=== PATIENT | female | born 1960 | race Caucasian/White ===

== ENCOUNTER 2025-01-03 15:23 | Emergency (ER) | payer SELFPAY ==
[2025-01-03] VITALS (41 sets, daily range): BP systolic 75–208; BP diastolic 50–96; PULSE 49–135; RESP 13–25; TEMP 36.4; O2SAT 95–100; BMI 30.1
--- NOTE | 2025-01-03 15:23 | ECG_ITS ---
APPROVED REPORT Exam: Resting ECG HR:137 bpm ECG Measurements Heart Rate 137 AXES QRSd 85 QRS 67 QT 317 T 71 QTc 397 Conclusion ATRIAL FIBRILLATION WITH RAPID VENTRICULAR RESPONSE MODERATE ST DEPRESSION [0.05+ mV ST DEPRESSION] ABNORMAL ECG UNCONFIRMED REPORT Electronically signed by : EFRAIN KRUEGER, 01/05/2025 23:05:59
--- NOTE | 2025-01-03 15:23 | CT_ITS ---
PROCEDURE INFORMATION: Exam: CT Head Without Contrast Exam date and time: 01/03/2025 4:03 PM Age: 64 years old Clinical indication: Syncope and collapse TECHNIQUE: Imaging protocol: Computed tomography of the head without contrast. Radiation optimization: All CT scans at this facility use at least one of these dose optimization techniques: automated exposure control; mA and/or kV adjustment per patient size (includes targeted exams where dose is matched to clinical indication); or iterative reconstruction. COMPARISON: No relevant prior studies available. FINDINGS: Brain: 10 mm hyperdense lesion right frontal white matter. Periventricular and subcortical small vessel ischemic changes appear chronic. Mild atrophy associated. No acute hemorrhage, mass effect, midline shift, or extra-axial fluid collection. Consider MRI with contrast for further evaluation. Cerebral ventricles: No ventriculomegaly. Paranasal sinuses: Visualized sinuses are unremarkable. No fluid levels. Mastoid air cells: Visualized mastoid air cells are well aerated. Bones: Unremarkable. No acute fracture. Soft tissues: Unremarkable. IMPRESSION: 10 mm hyperdense lesion right frontal white matter. Consider MRI with contrast for further evaluation.
--- NOTE | 2025-01-03 15:23 | XR_ITS ---
PROCEDURE INFORMATION: Exam: XR Chest Exam date and time: 01/03/2025 4:14 PM Age: 64 years old Clinical indication: Shortness of breath; Additional info: Cp SOA TECHNIQUE: Imaging protocol: Radiologic exam of the chest. Views: 1 view. COMPARISON: CT ANGIO CHEST 01/03/2025 4:09 PM FINDINGS: Lungs: Unremarkable. No consolidation. Pleural spaces: Unremarkable. No pleural effusion. No pneumothorax. Heart/Mediastinum: Unremarkable. No cardiomegaly. Bones/joints: Unremarkable. IMPRESSION: No acute findings.
--- NOTE | 2025-01-03 15:23 | CT_ITS ---
PROCEDURE INFORMATION: Exam: CT Cervical Spine Without Contrast Exam date and time: 01/03/2025 4:05 PM Age: 64 years old Clinical indication: Injury or trauma; Fall; Blunt trauma TECHNIQUE: Imaging protocol: Computed tomography of the cervical spine without contrast. Radiation optimization: All CT scans at this facility use at least one of these dose optimization techniques: automated exposure control; mA and/or kV adjustment per patient size (includes targeted exams where dose is matched to clinical indication); or iterative reconstruction. COMPARISON: CT HEAD/BRAIN WO CON 01/03/2025 4:03 PM FINDINGS: Bones/joints: No acute fracture. Normal alignment. C2-C3: No significant disc bulge or herniation. No severe spinal canal stenosis. No significant neural foraminal narrowing. C3-C4: No significant disc bulge or herniation. No severe spinal canal stenosis. No significant neural foraminal narrowing. C4-C5: No significant disc bulge or herniation. No severe spinal canal stenosis. No significant neural foraminal narrowing. C5-C6: No significant disc bulge or herniation. No severe spinal canal stenosis. No significant neural foraminal narrowing. C6-C7: No significant disc bulge or herniation. No severe spinal canal stenosis. No significant neural foraminal narrowing. C7-T1: No significant disc bulge or herniation. No severe spinal canal stenosis. No significant neural foraminal narrowing. Lungs: Lung apices are normal. Soft tissues: Unremarkable. IMPRESSION: No acute cervical spine fracture.
[2025-01-03] MEDS: 0.9 % SODIUM CHLORIDE 1000ML 1,000 ML 999 ML IV (15:25)
--- NOTE | 2025-01-03 15:26 | PC.NURSE ---
called RT for continuous neb per PA Heide
--- NOTE | 2025-01-03 15:28 | CT_ITS ---
PROCEDURE INFORMATION: Exam: CTA Chest With Contrast Exam date and time: 01/03/2025 4:09 PM Age: 64 years old Clinical indication: Shortness of breath; Additional info: SOA TECHNIQUE: Imaging protocol: Computed tomographic angiography of the chest with contrast. Exam focused on the arteries. 3D rendering (Not supervised by radiologist): MIP and/or 3D reconstructed images were created by the technologist. Radiation optimization: All CT scans at this facility use at least one of these dose optimization techniques: automated exposure control; mA and/or kV adjustment per patient size (includes targeted exams where dose is matched to clinical indication); or iterative reconstruction. Contrast material: ISOVUE 370; Contrast volume: 80 ml; Contrast route: INTRAVENOUS (IV); COMPARISON: CT CERVICAL SPINE WO CON 01/03/2025 4:05 PM FINDINGS: Pulmonary arteries: Normal. No pulmonary emboli. Aorta: Unremarkable. No aortic aneurysm. No aortic dissection. Lungs: Unremarkable. No consolidation. No masses. Pleural spaces: Unremarkable. No pneumothorax. No pleural effusion. Heart: Unremarkable. No cardiomegaly. No pericardial effusion. Lymph nodes: Unremarkable. No enlarged lymph nodes. Bones/joints: Unremarkable. No acute fracture. Soft tissues: Unremarkable. IMPRESSION: No acute findings.
--- NOTE | 2025-01-03 15:39 | ED_ITS ---
Discharge Plan Disposition Chief Complaint: Shortness of Breath/Dyspnea Referrals Follow up/Referrals: Provider,Referral, MD [Primary Care Provider, Medical] - See instructions Stand Alone Forms Stand Alone Forms: Transfer Record - ED Print Language Print Language: Lao Discharge ED Provider: Jessica Guzman HPI <Mayi Wiley APRN - Last Filed: 01/03/25 18:28> General Chief Complaint: Shortness of Breath/Dyspnea Stated Complaint: AMS Time Seen by Provider: 01/03/25 15:26 History of Present Illness HPI narrative: patient is a 64-year-old female PMHx COPD (does not wear home O2), current tobacco use who presents to the ED via EMS for complaints of shortness of air and intermittent chest pain that has progressed over the past week. Patient states that she had a syncopal episode last night, falling in her kitchen and hitting her head on something in the kitchen, unsure of how long she was out. Related Data Allergies Allergy/AdvReac Type Severity Reaction Status Date / Time No Known Allergies Allergy Verified 01/03/25 15:45 <Jessica Guzman DO - Last Filed: 01/03/25 19:39> History of Present Illness HPI narrative: patient is a 64-year-old female PMHx COPD (does not wear home O2), current tobacco use who presents to the ED via EMS for complaints of shortness of air and intermittent chest pain that has progressed over the past week. Patient states that she had a syncopal episode last night, falling in her kitchen and hitting her head on something in the kitchen, unsure of how long she was out. Patient denies any abdominal pain, nausea vomiting or diarrhea. Patient denies any headache or vision changes. Patient states that she was able to get up on her own after her fall last night. Patient states that she does have COPD but does not have any other cardiac history. States that she has never been told she has A-fib. States that she is not currently on any blood thinners. Patient denies any urinary symptoms denies any recent upper respiratory symptoms. PFSH <Mayi Wiley APRN - Last Filed: 01/03/25 18:28> [facility] Disclaimer: The information contained in this section may have been updated after the patient was seen, as this information can be updated by other users. Social History (Updated 01/03/25 @ 18:28 by Mayi Wiley APRN) Smoking Status: Current every day smoker alcohol intake: never current occupational status: unemployed Travel in the last 8 weeks?: None <Mayi Wiley APRN - Last Filed: 01/03/25 18:28> ROS Obtained: Yes Systems reviewed as appropriate & no additional complaints except as documented <Jessica Guzman DO - Last Filed: 01/03/25 19:39> ROS Obtained: Yes All systems reviewed & no additional complaints except as documented and Yes Systems reviewed as appropriate & no additional complaints except as documented Physical Exam <Mayi Wiley APRN - Last Filed: 01/03/25 18:28> General General appearance: alert Head Head exam: atraumatic Eye Eye exam: Present PERRL and EOMI; Absent nystagmus Neck Neck exam: Present full ROM Respiratory Respiratory exam: Present respiratory distress and other (Decreased breath sounds) Cardiovascular Cardiovascular exam: Present tachycardia and irregular rhythm Abdominal Exam Abdominal exam: Present soft Back Exam Back exam: Absent tenderness or rashes Neurological Exam Neurological exam: Present alert Skin Skin exam: Present dry <Jessica Guzman DO - Last Filed: 01/03/25 19:39> General General appearance: alert and in no apparent distress Head Head exam: normocephalic Neck Neck exam: Present normal inspection Respiratory Respiratory exam: Present normal lung sounds bilaterally, respiratory distress and other (Decreased breath sounds, some wheezing in upper lung [place]) Abdominal Exam Abdominal exam: Absent distention or tenderness HEART Score <Mayi Wiley APRN - Last Filed: 01/03/25 18:28> HEART Score HEART Score assessment performed?: No Critical Care <Mayi Wiley APRN - Last Filed: 01/03/25 18:28> Critical Care Time Critical Care Time: No <Jessica Guzman DO - Last Filed: 01/03/25 19:39> Critical Care Time Critical Care Time: Yes Attestation: On 01/03/25, the high probability of a clinically significant, sudden or life threatening deterioration of the following system(s) required my full and direct attention, intervention and personal management. The time I documented below is in addition to time spent performing reported procedures but includes the following listed in this critical care notation. Total Time Total Critical Care Time: 65 Medical Decision Making <Mayi Wiley APRN - Last Filed: 01/03/25 18:28> Bret Inquiry Pt receiving controlled substance: No Vital Signs Vital Signs: 01/03/25 15:56 01/03/25 16:41 01/03/25 16:45 Temperature 97.5 F L Temperature Source Oral Pulse Rate 70 Pulse Rate [Right Radial] 135 H Respiratory Rate 25 H 19 Blood Pressure 84/52 L 75/53 L Blood Pressure [Right Arm] 78/55 L Blood Pressure Mean 56 56 Blood Pressure Mean [Right Arm] 62 Blood Pressure Source [Right Arm] Automatic Cuff Blood Pressure Position [Right Arm] Supine 02 Sat by Pulse Oximetry 95 98 Oxygen Delivery Method Nasal Cannula Nasal Cannula Oxygen Flow Rate (LPM) 6 6 01/03/25 16:50 01/03/25 16:59 01/03/25 17:00 Temperature Temperature Source Pulse Rate 91 H Pulse Rate [Right Radial] Respiratory Rate 22 Blood Pressure 84/61 L 117/77 109/70 L Blood Pressure [Right Arm] Blood Pressure Mean 67 88 78 Blood Pressure Mean [Right Arm] Blood Pressure Source [Right Arm] Blood Pressure Position [Right Arm] 02 Sat by Pulse Oximetry 97 Oxygen Delivery Method Nasal Cannula Oxygen Flow Rate (LPM) 6 01/03/25 17:05 01/03/25 17:10 01/03/25 17:15 Temperature Temperature Source Pulse Rate 96 H Pulse Rate [Right Radial] Respiratory Rate 21 Blood Pressure 120/82 109/69 L 120/78 Blood Pressure [Right Arm] Blood Pressure Mean 94 82 92 Blood Pressure Mean [Right Arm] Blood Pressure Source [Right Arm] Blood Pressure Position [Right Arm] 02 Sat by Pulse Oximetry 96 Oxygen Delivery Method Nasal Cannula Oxygen Flow Rate (LPM) 6 01/03/25 17:20 01/03/25 17:26 01/03/25 17:30 Temperature Temperature Source Pulse Rate 89 Pulse Rate [Right Radial] Respiratory Rate 22 Blood Pressure 118/72 97/62 L 115/84 Blood Pressure [Right Arm] Blood Pressure Mean 87 79 92 Blood Pressure Mean [Right Arm] Blood Pressure Source [Right Arm] Blood Pressure Position [Right Arm] 02 Sat by Pulse Oximetry 97 Oxygen Delivery Method Nasal Cannula Oxygen Flow Rate (LPM) 6 01/03/25 17:35 01/03/25 17:40 01/03/25 17:46 Temperature Temperature Source Pulse Rate 78 Pulse Rate [Right Radial] Respiratory Rate 18 Blood Pressure 129/83 116/73 151/93 H Blood Pressure [Right Arm] Blood Pressure Mean 93 87 102 Blood Pressure Mean [Right Arm] Blood Pressure Source [Right Arm] Blood Pressure Position [Right Arm] 02 Sat by Pulse Oximetry 100 Oxygen Delivery Method Nasal Cannula Oxygen Flow Rate (LPM) 01/03/25 17:50 01/03/25 18:05 01/03/25 18:10 Temperature Temperature Source Pulse Rate 79 81 78 Pulse Rate [Right Radial] Respiratory Rate 17 16 19 Blood Pressure 132/85 114/75 141/83 H Blood Pressure [Right Arm] Blood Pressure Mean Blood Pressure Mean [Right Arm] Blood Pressure Source [Right Arm] Blood Pressure Position [Right Arm] 02 Sat by Pulse Oximetry 100 100 100 Oxygen Delivery Method Nasal Cannula Nasal Cannula Nasal Cannula Oxygen Flow Rate (LPM) 6 6 2 01/03/25 18:31 01/03/25 18:39 01/03/25 18:45 Temperature Temperature Source Pulse Rate 84 81 80 Pulse Rate [Right Radial] Respiratory Rate 20 19 21 Blood Pressure 89/54 L 101/59 L 88/56 L Blood Pressure [Right Arm] Blood Pressure Mean Blood Pressure Mean [Right Arm] Blood Pressure Source [Right Arm] Blood Pressure Position [Right Arm] 02 Sat by Pulse Oximetry 95 96 96 Oxygen Delivery Method Nasal Cannula Nasal Cannula Nasal Cannula Oxygen Flow Rate (LPM) 2 2 2 01/03/25 18:59 Temperature Temperature Source Pulse Rate Pulse Rate [Right Radial] Respiratory Rate Blood Pressure Blood Pressure [Right Arm] Blood Pressure Mean Blood Pressure Mean [Right Arm] Blood Pressure Source [Right Arm] Blood Pressure Position [Right Arm] 02 Sat by Pulse Oximetry 95 Oxygen Delivery Method Nasal Cannula Oxygen Flow Rate (LPM) 2 Lab Data Labs: Lab Results 01/03/25 15:23: VBG pH 7.41, VBG pCO2 49.4, VBG pO2 33.2, VBG HCO3 30.5 H, VBG Total CO2 32.0 H, VBG O2 Saturation 64.9, VBG Base Excess 5.8 H, VBG Lactic Acid 2.5 H 01/03/25 15:28: WBC 15.3 H, RBC 4.38, Hgb 14.0, Hct 40.7, MCV 92.9, MCH 32.0 H, MCHC 34.4, RDW 14.0, Plt Count 256, MPV 10.9 H, Neut % (Auto) 67.7, Lymph % (Auto) 24.5, [place] % (Auto) 6.9, Eos % (Auto) 0.3, Baso % (Auto) 0.2, Neut # (Auto) 10.4 H, Lymph # (Auto) 3.8, [place] # (Auto) 1.1 H, Eos # (Auto) 0.0, Baso # (Auto) 0.0, PT 10.7, INR 0.96, APTT 26.5, Sodium 123 L, Potassium 3.3 L, C hloride 84 L, Carbon Dioxide 31 H, Anion Gap 11.3, BUN 45 H, Creatinine 3.40 H, Estimated Creat Clear 21, Estimated GFR 14 L*, Est GFR ( Amer) 17 L*, Glucose 100, Calcium 8.8, Total Bilirubin 1.0, AST 42 H, ALT 20, Alkaline Phosphatase 103, Troponin I 0.02, NT-Pro-B Natriuret Pep 756 H, Total Protein 6.6, Albumin 3.9, Globulin 2.7, Albumin/Globulin Ratio 1.4, Lipase 28, Plasma/Serum Alcohol < 10, HCV Ab CAROLE w/Rflx PCR Qn Negative, HIV Ag/Ab Combo Qual Negative 01/03/25 17:33: Urine Color Yellow, Urine Appearance Sl cloudy, Urine pH 5.5, Ur Specific [place] <= 1.005, Urine Protein Trace, Urine Glucose (UA) Negative, Urine Ketones Negative, Urine Blood Trace-i, Urine Nitrate Negative, Urine Bilirubin Negative, Urine Urobilinogen 0.2, Ur Leukocyte Esterase Negative, Urine RBC Occasional, Urine WBC Occasional, Ur Squamous Epith Cells 5-10, Urine Bacteria 1+ 01/03/25 17:35: Urine Opiates Screen Negative, Urine Methadone Screen Negative, Ur Barbituates Screen Negative, Ur Phencyclidine Scrn Negative, Ur Amphetamines Screen Negative, U Benzodiazepines Scrn Negative, Urine Cocaine Screen Negative, U Marijuana (THC) Screen Negative 01/03/25 18:40: Troponin I 0.02 01/03/25 15:28 01/03/25 15:28 Response Orders (Tests/Meds): ED MEDICATIONS Generic Name Dose Route Start Last Admin Trade Name Freq PRN Reason Stop Dose Admin Azithromycin 500 mg/ Sodium 250 mls @ 250 mls/hr 01/03/25 15:45 01/03/25 18:55 Chloride IV 01/13/25 15:44 Infused Q24H JORGE Infusion Norepinephrine/Dextrose 8 mg in 250 mls @ 3.75 mls/hr 01/03/25 16:21 01/03/25 19:06 Levophed 8mg/250ml-D5w Premix IV 02/02/25 16:20 2 mcg/min .Q24H JORGE 3.75 mls/hr Protocol Titration 2 MCG/MIN Potassium Chloride/Water 100 mls @ 50 mls/hr 01/03/25 18:11 01/03/25 18:50 Potassium Chloride 20meq/100ml Ivpb IV 01/04/25 00:10 50 mls/hr Q2H JORGE Administration Sodium Chloride 10 ml 01/03/25 16:03 Sodium Chloride 0.9% 10ml Syr (Rad Only) IV 02/02/25 16:02 NEEDED PRN Maintain IV Site Discontinued Medications Generic Name Dose Route Start Last Admin Trade Name Freq PRN Reason Stop Dose Admin Albuterol/Ipratropium 20 ml 01/03/25 15:23 01/03/25 18:55 Ipratropium/Albuterol 3 Ml Neb IH 01/03/25 15:24 Not Given ONCE ONE Sodium Chloride 1,000 mls @ 999 mls/hr 01/03/25 15:23 01/03/25 18:17 Sod Chlor 0.9% 1000ml Bag IV 01/03/25 16:23 Infused .Q1H1M ONE Infusion Magnesium Sulfate 2 gm in 50 mls @ 50 mls/hr 01/03/25 15:41 01/03/25 17:19 Magnesium Sulfate 2gm/50ml Premix IV 01/03/25 16:40 Infused ONCE ONE Infusion Piperacillin Sod/Tazobactam 50 mls @ 100 mls/hr 01/03/25 16:23 01/03/25 18:56 Sod 3.375 gm/ Sodium Chloride IV 01/03/25 16:52 Infused ONCE ONE Infusion Vancomycin HCl 2,000 mg/ 250 mls @ 125 mls/hr 01/03/25 16:30 Sodium Chloride IV 01/03/25 18:29 ONCE ONE Lactated Ringer's 1,000 mls @ 999 mls/hr 01/03/25 17:22 01/03/25 18:10 Lactated Ringer's 1000 Ml Bag IV 01/03/25 18:22 999 mls/hr .Q1H1M ONE Administration Iopamidol 80 ml 01/03/25 16:03 Iopamidol-370 (76%);100ml Bottle IV 01/03/25 16:04 ONCE ONE Methylprednisolone Sodium Succinate 125 mg 01/03/25 15:41 01/03/25 15:53 Methylprednisolone Sod Succ 125mg Vial IV 01/03/25 15:42 125 mg ONCE ONE Administration Miscellaneous 1 each 01/03/25 16:23 Vancomycin Consult Request NOTAPPLIC 01/03/25 16:24 CONSULT PHARMACY ONE Sodium Chloride 50 ml 01/03/25 16:03 0.9 % Sodium Chloride 50 Ml Vial IV 01/03/25 16:04 ONCE ONE ORDERS Category Date Time Status CT abdomen pelvis w con Stat Cat Scan 01/03/25 15:[address] angio chest - dissection Stat Cat Scan 01/03/25 15:[address] cervical spine wo con Stat Cat Scan 01/03/25 15:[address] head/brain wo con Stat Cat Scan 01/03/25 15:23 Completed CXR --portable [XR chest portable] Stat Exams 01/03/25 15:23 Completed POCUS Point of Care (ER Only) Stat Exams 01/03/25 15:29 Completed BNP [NT Pro Brain Natriuretic Pep.] Stat Lab 01/03/25 15:28 Completed CBC w/Auto Diff [Complete Blood Count Auto Diff] Stat Lab 01/03/25 15:28 Completed CMP [Comprehensive Metabolic Panel] Stat Lab 01/03/25 15:28 Completed Ethyl Alcohol Stat Lab 01/03/25 15:28 Completed HIV Combo Stat Lab 01/03/25 15:28 Completed Hepatitis C Ab Qual. W/ RFX Stat Lab 01/03/25 15:28 Completed Lipase Stat Lab 01/03/25 15:28 Completed PT/PTT Stat Lab 01/03/25 15:28 Completed Trop I [Troponin I] Stat Lab 01/03/25 15:28 Completed Troponin I Q3H Lab 01/03/25 18:40 Completed Troponin I Q3H Lab 01/03/25 21:30 Ordered UA [Urinalysis and Microscopic] Stat Lab 01/03/25 17:33 Completed UDS [Drug Screen,Urine] Stat Lab 01/03/25 17:35 Completed Urine Culture Stat Micro 01/03/25 17:35 Received VBG [Venous Blood Gas] Stat RT 01/03/25 15:23 Completed EKG Request [ECG Request] Stat Y 01/03/25 17:23 Ordered MDM Narrative Medical Decision Narrative: In summary, patient is a 64-year-old female PMHx COPD (does not wear home O2), current tobacco use who presents to the ED via EMS for complaints of shortness of air and intermittent chest pain that has progressed over the past week. Patient states that she had a syncopal episode last night, falling in her kitchen and hitting her head on something in the kitchen, unsure of how long she was out. Denies any additional complaints. EMS reports that family called the stating that she was short of breath, they advised that upon arrival patient's oxygen saturation was fluctuating from the 60s to the 80s on room air. Upon arrival to the ED, patient is in respiratory distress, she is hypotensive (systolic 60s) and tachycardic (130s), she is speaking a few words at a time. She arrived on a nonrebreather and was switched to 6 L nasal cannula (94%), attending at bedside, POCUS performed. CT head, CT C-spine, CT chest, chest x- ray, labs and EKG ordered. Immediately started 2 L of warm IV fluids with pressure bag. Attending ordered magnesium, ipratropium, DuoNeb, azithromycin. CBC remarkable for leukocytosis 15.3, stable H&H. CMP remarkable for sodium 123, potassium 3.3, BUN 45, creatinine 3.40, GFR 14, BNP 756. VBG remarkable for HCO3 30.5, CO2 32, lactic acid 2.5. Vancomycin and Zosyn started. Care transferred to attending, Dr. Guzman. <Jessica Guzman, DO - Last Filed: 01/03/25 19:39> Medical Records Medical records reviewed: Yes I reviewed the patient's medical records. Vital Signs Vital Signs: 01/03/25 15:56 01/03/25 16:41 01/03/25 16:45 Temperature 97.5 F L Temperature Source Oral Pulse Rate 70 Pulse Rate [Right Radial] 135 H Respiratory Rate 25 H 19 Blood Pressure 84/52 L 75/53 L Blood Pressure [Right Arm] 78/55 L Blood Pressure Mean 56 56 Blood Pressure Mean [Right Arm] 62 Blood Pressure Source [Right Arm] Automatic Cuff Blood Pressure Position [Right Arm] Supine 02 Sat by Pulse Oximetry 95 98 Oxygen Delivery Method Nasal Cannula Nasal Cannula Oxygen Flow Rate (LPM) 6 6 01/03/25 16:50 01/03/25 16:59 01/03/25 17:00 Temperature Temperature Source Pulse Rate 91 H Pulse Rate [Right Radial] Respiratory Rate 22 Blood Pressure 84/61 L 117/77 109/70 L Blood Pressure [Right Arm] Blood Pressure Mean 67 88 78 Blood Pressure Mean [Right Arm] Blood Pressure Source [Right Arm] Blood Pressure Position [Right Arm] 02 Sat by Pulse Oximetry 97 Oxygen Delivery Method Nasal Cannula Oxygen Flow Rate (LPM) 6 01/03/25 17:05 01/03/25 17:10 01/03/25 17:15 Temperature Temperature Source Pulse Rate 96 H Pulse Rate [Right Radial] Respiratory Rate 21 Blood Pressure 120/82 109/69 L 120/78 Blood Pressure [Right Arm] Blood Pressure Mean 94 82 92 Blood Pressure Mean [Right Arm] Blood Pressure Source [Right Arm] Blood Pressure Position [Right Arm] 02 Sat by Pulse Oximetry 96 Oxygen Delivery Method Nasal Cannula Oxygen Flow Rate (LPM) 6 01/03/25 17:20 01/03/25 17:26 01/03/25 17:30 Temperature Temperature Source Pulse Rate 89 Pulse Rate [Right Radial] Respiratory Rate 22 Blood Pressure 118/72 97/62 L 115/84 Blood Pressure [Right Arm] Blood Pressure Mean 87 79 92 Blood Pressure Mean [Right Arm] Blood Pressure Source [Right Arm] Blood Pressure Position [Right Arm] 02 Sat by Pulse Oximetry 97 Oxygen Delivery Method Nasal Cannula Oxygen Flow Rate (LPM) 6 01/03/25 17:35 01/03/25 17:40 01/03/25 17:46 Temperature Temperature Source Pulse Rate 78 Pulse Rate [Right Radial] Respiratory Rate 18 Blood Pressure 129/83 116/73 151/93 H Blood Pressure [Right Arm] Blood Pressure Mean 93 87 102 Blood Pressure Mean [Right Arm] Blood Pressure Source [Right Arm] Blood Pressure Position [Right Arm] 02 Sat by Pulse Oximetry 100 Oxygen Delivery Method Nasal Cannula Oxygen Flow Rate (LPM) 01/03/25 17:50 01/03/25 18:05 01/03/25 18:10 Temperature Temperature Source Pulse Rate 79 81 78 Pulse Rate [Right Radial] Respiratory Rate 17 16 19 Blood Pressure 132/85 114/75 141/83 H Blood Pressure [Right Arm] Blood Pressure Mean Blood Pressure Mean [Right Arm] Blood Pressure Source [Right Arm] Blood Pressure Position [Right Arm] 02 Sat by Pulse Oximetry 100 100 100 Oxygen Delivery Method Nasal Cannula Nasal Cannula Nasal Cannula Oxygen Flow Rate (LPM) 6 6 2 01/03/25 18:31 01/03/25 18:39 01/03/25 18:45 Temperature Temperature Source Pulse Rate 84 81 80 Pulse Rate [Right Radial] Respiratory Rate 20 19 21 Blood Pressure 89/54 L 101/59 L 88/56 L Blood Pressure [Right Arm] Blood Pressure Mean Blood Pressure Mean [Right Arm] Blood Pressure Source [Right Arm] Blood Pressure Position [Right Arm] 02 Sat by Pulse Oximetry 95 96 96 Oxygen Delivery Method Nasal Cannula Nasal Cannula Nasal Cannula Oxygen Flow Rate (LPM) 2 2 2 01/03/25 18:59 Temperature Temperature Source Pulse Rate Pulse Rate [Right Radial] Respiratory Rate Blood Pressure Blood Pressure [Right Arm] Blood Pressure Mean Blood Pressure Mean [Right Arm] Blood Pressure Source [Right Arm] Blood Pressure Position [Right Arm] 02 Sat by Pulse Oximetry 95 Oxygen Delivery Method Nasal Cannula Oxygen Flow Rate (LPM) 2 Lab Data Lab results reviewed: Yes I reviewed the patient's lab results. Labs: Lab Results 01/03/25 15:23: VBG pH 7.41, VBG pCO2 49.4, VBG pO2 33.2, VBG HCO3 30.5 H, VBG Total CO2 32.0 H, VBG O2 Saturation 64.9, VBG Base Excess 5.8 H, VBG Lactic Acid 2.5 H 01/03/25 15:28: WBC 15.3 H, RBC 4.38, Hgb 14.0, Hct 40.7, MCV 92.9, MCH 32.0 H, MCHC 34.4, RDW 14.0, Plt Count 256, MPV 10.9 H, Neut % (Auto) 67.7, Lymph % (Auto) 24.5, [place] % (Auto) 6.9, Eos % (Auto) 0.3, Baso % (Auto) 0.2, Neut # (Auto) 10.4 H, Lymph # (Auto) 3.8, [place] # (Auto) 1.1 H, Eos # (Auto) 0.0, Baso # (Auto) 0.0, PT 10.7, INR 0.96, APTT 26.5, Sodium 123 L, Potassium 3.3 L, C hloride 84 L, Carbon Dioxide 31 H, Anion Gap 11.3, BUN 45 H, Creatinine 3.40 H, Estimated Creat Clear 21, Estimated GFR 14 L*, Est GFR ( Amer) 17 L*, Glucose 100, Calcium 8.8, Total Bilirubin 1.0, AST 42 H, ALT 20, Alkaline Phosphatase 103, Troponin I 0.02, NT-Pro-B Natriuret Pep 756 H, Total Protein 6.6, Albumin 3.9, Globulin 2.7, Albumin/Globulin Ratio 1.4, Lipase 28, Plasma/Serum Alcohol < 10, HCV Ab CAROLE w/Rflx PCR Qn Negative, HIV Ag/Ab Combo Qual Negative 01/03/25 17:33: Urine Color Yellow, Urine Appearance Sl cloudy, Urine pH 5.5, Ur Specific [place] <= 1.005, Urine Protein Trace, Urine Glucose (UA) Negative, Urine Ketones Negative, Urine Blood Trace-i, Urine Nitrate Negative, Urine Bilirubin Negative, Urine Urobilinogen 0.2, Ur Leukocyte Esterase Negative, Urine RBC Occasional, Urine WBC Occasional, Ur Squamous Epith Cells 5-10, Urine Bacteria 1+ 01/03/25 17:35: Urine Opiates Screen Negative, Urine Methadone Screen Negative, Ur Barbituates Screen Negative, Ur Phencyclidine Scrn Negative, Ur Amphetamines Screen Negative, U Benzodiazepines Scrn Negative, Urine Cocaine Screen Negative, U Marijuana (THC) Screen Negative 01/03/25 18:40: Troponin I 0.02 Response Orders (Tests/Meds): ED MEDICATIONS Generic Name Dose Route Start Last Admin Trade Name Freq PRN Reason Stop Dose Admin Azithromycin 500 mg/ Sodium 250 mls @ 250 mls/hr 01/03/25 15:45 01/03/25 18:55 Chloride IV 01/13/25 15:44 Infused Q24H JORGE Infusion Norepinephrine/Dextrose 8 mg in 250 mls @ 3.75 mls/hr 01/03/25 16:21 01/03/25 19:06 Levophed 8mg/250ml-D5w Premix IV 02/02/25 16:20 2 mcg/min .Q24H JORGE 3.75 mls/hr Protocol Titration 2 MCG/MIN Potassium Chloride/Water 100 mls @ 50 mls/hr 01/03/25 18:11 01/03/25 18:50 Potassium Chloride 20meq/100ml Ivpb IV 01/04/25 00:10 50 mls/hr Q2H JORGE Administration Sodium Chloride 10 ml 01/03/25 16:03 Sodium Chloride 0.9% 10ml Syr (Rad Only) IV 02/02/25 16:02 NEEDED PRN Maintain IV Site Discontinued Medications Generic Name Dose Route Start Last Admin Trade Name Freq PRN Reason Stop Dose Admin Albuterol/Ipratropium 20 ml 01/03/25 15:23 01/03/25 18:55 Ipratropium/Albuterol 3 Ml Neb IH 01/03/25 15:24 Not Given ONCE ONE Sodium Chloride 1,000 mls @ 999 mls/hr 01/03/25 15:23 01/03/25 18:17 Sod Chlor 0.9% 1000ml Bag IV 01/03/25 16:23 Infused .Q1H1M ONE Infusion Magnesium Sulfate 2 gm in 50 mls @ 50 mls/hr 01/03/25 15:41 01/03/25 17:19 Magnesium Sulfate 2gm/50ml Premix IV 01/03/25 16:40 Infused ONCE ONE Infusion Piperacillin Sod/Tazobactam 50 mls @ 100 mls/hr 01/03/25 16:23 01/03/25 18:56 Sod 3.375 gm/ Sodium Chloride IV 01/03/25 16:52 Infused ONCE ONE Infusion Vancomycin HCl 2,000 mg/ 250 mls @ 125 mls/hr 01/03/25 16:30 Sodium Chloride IV 01/03/25 18:29 ONCE ONE Lactated Ringer's 1,000 mls @ 999 mls/hr 01/03/25 17:22 01/03/25 18:10 Lactated Ringer's 1000 Ml Bag IV 01/03/25 18:22 999 mls/hr .Q1H1M ONE Administration Iopamidol 80 ml 01/03/25 16:03 Iopamidol-370 (76%);100ml Bottle IV 01/03/25 16:04 ONCE ONE Methylprednisolone Sodium Succinate 125 mg 01/03/25 15:41 01/03/25 15:53 Methylprednisolone Sod Succ 125mg Vial IV 01/03/25 15:42 125 mg ONCE ONE Administration Miscellaneous 1 each 01/03/25 16:23 Vancomycin Consult Request NOTAPPLIC 01/03/25 16:24 CONSULT PHARMACY ONE Sodium Chloride 50 ml 01/03/25 16:03 0.9 % Sodium Chloride 50 Ml Vial IV 01/03/25 16:04 ONCE ONE ORDERS Category Date Time Status CT abdomen pelvis w con Stat Cat Scan 01/03/25 15:[address] angio chest - dissection Stat Cat Scan 01/03/25 15:[address] cervical spine wo con Stat Cat Scan 01/03/25 15:[address] head/brain wo con Stat Cat Scan 01/03/25 15:23 Completed CXR --portable [XR chest portable] Stat Exams 01/03/25 15:23 Completed POCUS Point of Care (ER Only) Stat Exams 01/03/25 15:29 Completed BNP [NT Pro Brain Natriuretic Pep.] Stat Lab 01/03/25 15:28 Completed CBC w/Auto Diff [Complete Blood Count Auto Diff] Stat Lab 01/03/25 15:28 Completed CMP [Comprehensive Metabolic Panel] Stat Lab 01/03/25 15:28 Completed Ethyl Alcohol Stat Lab 01/03/25 15:28 Completed HIV Combo Stat Lab 01/03/25 15:28 Completed Hepatitis C Ab Qual. W/ RFX Stat Lab 01/03/25 15:28 Completed Lipase Stat Lab 01/03/25 15:28 Completed PT/PTT Stat Lab 01/03/25 15:28 Completed Trop I [Troponin I] Stat Lab 01/03/25 15:28 Completed Troponin I Q3H Lab 01/03/25 18:40 Completed Troponin I Q3H Lab 01/03/25 21:30 Ordered UA [Urinalysis and Microscopic] Stat Lab 01/03/25 17:33 Completed UDS [Drug Screen,Urine] Stat Lab 01/03/25 17:35 Completed Urine Culture Stat Micro 01/03/25 17:35 Received VBG [Venous Blood Gas] Stat RT 01/03/25 15:23 Completed EKG Request [ECG Request] Stat Y 01/03/25 17:23 Ordered MDM Narrative Medical Decision Narrative: In summary, patient is a 64-year-old female PMHx COPD (does not wear home O2), current tobacco use who presents to the ED via EMS for complaints of shortness of air and intermittent chest pain that has progressed over the past week. Patient states that she had a syncopal episode last night, falling in her kitchen and hitting her head on something in the kitchen, unsure of how long she was out. Denies any additional complaints. EMS reports that family called the stating that she was short of breath, they advised that upon arrival patient's oxygen saturation was fluctuating from the 60s to the 80s on room air. Patient was placed on a nonrebreather and transferred here. Patient was hypotensive and route. Upon arrival to the ED, patient is in respiratory distress, she is hypotensive (systolic 60s) and tachycardic (130s), she is speaking a few words at a time. She arrived on a nonrebreather and was switched to 6 L nasal cannula (94%), attending at bedside, POCUS performed which showed no pericardial effusion, no right ventricular enlargement. No B-lines bilaterally. EF appeared normal, just hyperdynamic. CT head, CT C-spine, CT chest, CT abdomen and chest x-ray, labs and EKG ordered. Immediately started 2 L of warm IV fluids with pressure bag. Attending ordered magnesium, ipratropium, DuoNeb, azithromycin. CBC remarkable for leukocytosis 15.3, stable H&H. CMP remarkable for sodium 123, potassium 3.3, BUN 45, creatinine 3.40, GFR 14, BNP 756. VBG remarkable for HCO3 30.5, CO2 32, lactic acid 2.5. Blood cultures were obtained and patient was started on Vancomycin and Zosyn given concern for septic shock. Initial troponin 0.02. Initial EKG showed A-fib RVR rates in the 130s no acute ST or T wave changes concerning for ischemia. Care transferred to attending, Dr. Guzman. Patient's blood pressure after 1-1/2 L continue to have a systolic in the 60s therefore patient was empirically started on norepinephrine. Patient's heart rate did significantly improve and patient's heart rate was now 104. Although I considered cardioversion, patient's heart rate improved significantly with IV fluids therefore I felt that patient's A-fib with RVR was likely a secondary reaction and HR was improving significantly with IVF. UA showed no evidence of infection. Second troponin 0.02. While on low-dose norepinephrine, patient's blood pressures improved to 140 systolic therefore patient was trialed off of norepinephrine however patient systolic was then 80 therefore patient was placed back on norepinephrine. Patient completed her third liter of IV fluids. Repeat EKG was obtained and patient was back in normal sinus rhythm with a rate of [address] or T wave changes concerning for ischemia. At this time I felt the patient warranted admission for undifferentiated septic shock, significant dehydration with an acute IDA. Given that patient gets her care at the [facility], we discussed care with them. Patient was ultimately accepted to their service to the ICU for further management and workup.
--- NOTE | 2025-01-03 15:42 | CT_ITS ---
PROCEDURE INFORMATION: Exam: CT Abdomen And Pelvis With Contrast Exam date and time: 01/03/2025 4:09 PM Age: 64 years old Clinical indication: Other: Septic TECHNIQUE: Imaging protocol: Computed tomography of the abdomen and pelvis with contrast. 3D rendering (Not supervised by radiologist): MIP and/or 3D reconstructed images were created by the technologist. Radiation optimization: All CT scans at this facility use at least one of these dose optimization techniques: automated exposure control; mA and/or kV adjustment per patient size (includes targeted exams where dose is matched to clinical indication); or iterative reconstruction. Contrast material: ISOVUE; Contrast volume: 75 ml; Contrast route: IV; COMPARISON: CT ANGIO CHEST 01/03/2025 4:09 PM FINDINGS: Tubes, catheters and devices: None noted. Lungs: Lung bases appear clear. Heart: No significant coronary calcifications. No cardiomegaly. No significant pericardial effusion. Liver: Normal. No mass. Gallbladder and biliary ducts: Normal. No calcified stones. No ductal dilation. Pancreas: Normal. No ductal dilation. Spleen: Normal. No splenomegaly. Adrenal glands: Normal. No mass. Kidneys and ureters: Right pelvic kidney. Normal left kidney. No hydronephrosis. Stomach and bowel: Unremarkable. No obstruction. No mucosal thickening. Appendix: No evidence of appendicitis. Intraperitoneal space: Unremarkable. No free air. No significant fluid collection. Retroperitoneal space: No significant retroperitoneal inflammatory changes are noted. Vasculature: Unremarkable. No abdominal aortic aneurysm. Lymph nodes: Unremarkable. No enlarged lymph nodes. Urinary bladder: Unremarkable as visualized. Reproductive: Unremarkable as visualized. Bones/joints: Unremarkable. No acute fracture. Soft tissues: Unremarkable. IMPRESSION: No acute findings.
[2025-01-03 15:44] LABS: VBG HCO3 30.5 mmol/L (23-30); VBG PCO2 49.4 mmol/L (35-51); VBG PH 7.41 mmol/L (7.31-7.41); VBG PO2 33.2 mmol/L (28-40)
[2025-01-03 15:46] LABS: Lactate Venous 2.5 mmol/L (0.4-2.0)
[2025-01-03 15:50] LABS: Hematocrit 40.7 % (37.0-47.0); Hemoglobin 14.0 g/dL (12.2-16.2); Immature Granulocytes % 0.4 %; Mean Corpuscular HGB Conc 34.4 g/dL (31.8-35.4); Mean Corpuscular Hemoglobin 32.0 pg (27.0-31.2); Mean Corpuscular Volume 92.9 fl (81-99); Nucleated Red Blood Cells % 0 %; Platelet Count 256 K/mm3 (142-424); Red Blood Count 4.38 M/mm3 (4.20-5.40); Red Cell Distribution Width-SD 47.9 fL; White Blood Count 15.3 K/mm3 (4.8-10.8)
[2025-01-03] MEDS: MAGNESIUM SULFATE IN WATER 2 GM/50 ML PIGGYBACK IV (15:51)
[2025-01-03] MEDS: METHYLPREDNISOLONE SOD SUCC 125MG VIAL 125 MG IV (15:53)
[2025-01-03 15:59] LABS: Alanine Aminotransferase 20 U/L (12-78); Albumin Level 3.9 g/dl (3.5-5.0); Albumin/Globulin Ratio 1.4 (1.1-1.8); Alkaline Phosphatase 103 U/L (38-126); Anion Gap 11.3 mEq/L (5-15); Aspartate Amino Transferase 42 U/L (14-36); Bilirubin,Total 1.0 mg/dl (0.2-1.3); Blood Urea Nitrogen 45 mg/dl (7-17); Calcium 8.8 mg/dl (8.4-10.2); Carbon Dioxide 31 mmol/L (22.0-30.0); Chloride 84 mmol/L (98-107); Creatinine,Serum 3.40 mg/dl (0.52-1.04); Estimated Glomerular Filt Rate 14 ml/min (>60); GFR (African American) 17 ML/MIN (>60); Globulin 2.7 g/dL (1.3-3.2); Glucose 100 mg/dl (74-100); Potassium 3.3 mmoL/L (3.5-5.1); Sodium 123 mmol/L (136-145); Total Protein,Serum 6.6 g/dl (6.3-8.2)
[2025-01-03 16:00] LABS: Activated Partial Thrombo Time 26.5 seconds (22.8-30.6); INR 0.96 (0.9-1.1); Prothrombin Time 10.7 seconds (10.1-12.5)
[2025-01-03 16:06] LABS: Creatinine Clearance Estimated 21 mL/min (50-200)
[2025-01-03 16:11] LABS: NT Pro Brain Natriuretic Pep. 756 pg/mL (0-125); Troponin I 0.02 ng/ml (0.00-0.034)
--- NOTE | 2025-01-03 16:22 | HMH.ITSTN ---
per MD we are to proceed without waiting on labs
[2025-01-03 16:31] LABS: Lipase 28 U/L (23-300)
[2025-01-03] MEDS: AZITHROMYCIN 500 MG in 0.9 % SODIUM CHLORIDE 250 ML 250 MG IV (17:16)
[2025-01-03] MEDS: NOREPINEPHRINE BITARTRATE/D5W 8 MG/250 ML PLAST..BAG 3.75 MG IV (17:17)
--- NOTE | 2025-01-03 17:34 | PC.NURSE ---
called [facility] for pts medical records. [place] is faxing them over
--- NOTE | 2025-01-03 17:35 | PC.NURSE ---
pts mother: Sweetie Trejo [phone]
[2025-01-03 17:42] LABS: Bilirubin,Urine Negative (Negative); Color,Urine YELLOW (Yellow); Glucose,Urine (UA) Negative (Negative); Ketones,Urine Negative (Negative); Leukocyte Esterase,Urine Negative (Negative); Microscopic, Urine URINE MICROSCOPIC (MICROSCOPIC); PH,Urine 5.5 (5.0-8.5); Protein,Urine TRACE (Negative); Specific Gravity, Urine <= 1.005 (1.005-1.030); Urobilinogen,Urine 0.2 EU/dl (0.2)
[2025-01-03 17:54] LABS: Bacteria,Urine 1+ /lpf; RBC,Urine Occasional #/hpf (0-3); WBC,Urine Occasional #/hpf (0-3)
[2025-01-03] MEDS: PIPERCILLIN/TAZO 3.375 GM in 0.9 % SODIUM CHLORIDE 50 ML IV (18:06)
--- NOTE | 2025-01-03 18:07 | ECG_ITS ---
APPROVED REPORT Exam: Resting ECG HR:77 bpm ECG Measurements Heart Rate 77 AXES NC 163 P 75 QRSd 89 QRS 68 QT 396 T 69 QTc 427 Conclusion SINUS RHYTHM NORMAL ECG UNCONFIRMED REPORT Electronically signed by : EFRAIN KRUEGER, 01/05/2025 23:04:53
[2025-01-03 18:08] LABS: Amphetamine/Metha Screen,Urine Negative ng/ml (<1000)
[2025-01-03 18:09] LABS: Barbiturates Screen,Urine Negative ng/ml (<200)
[2025-01-03 18:10] LABS: Benzodiazepines Screen,Urine Negative ng/ml (<200)
[2025-01-03] MEDS: LACTATED RINGERS 1000ML 1,000 ML 999 ML IV (18:10)
[2025-01-03 18:12] LABS: Methadone Screen,Urine Negative ng/ml (<300); Opiate Screen,Urine Negative ng/ml (<300)
[2025-01-03 18:13] LABS: Phencyclidine Screen,Urine Negative ng/ml (<25)
--- NOTE | 2025-01-03 18:13 | PC.NURSE ---
called [facility] per Dr Guzman for pt transfer for septic shock and COPD exacerbation. will call back
--- NOTE | 2025-01-03 18:13 | PC.NURSE ---
Oxygen titrated down to 2LNC from 6LNC
--- NOTE | 2025-01-03 18:45 | PC.NURSE ---
An art line was attempted x2 L radial and x1 L femoral unsuccessfully by . pressure dressings applied.
--- NOTE | 2025-01-03 18:47 | PC.NURSE ---
[facility] called to state the pt was accepted. They are going to fax some papers to be filled out by . Once they receive them back they will call back with a bed assignment.
[2025-01-03 18:58] LABS: Hepatitis C Ab Qual. W/ RFX NEGATIVE (Negative)
[2025-01-03 19:14] LABS: Troponin I 0.02 ng/ml (0.00-0.034)
[2025-01-03 19:46] LABS: Reflex Lactic Add Lactic Reflex
--- NOTE | 2025-01-03 20:37 | PC.NURSE ---
report given to lluvia givens at [facility]. pt going to micu room [id number].
--- NOTE | 2025-01-03 20:58 | PC.NURSE ---
received call from [facility] and they explained that they do not have a helicopter pad and that this pt would have to be transported to and wait for days to be transported to [facility] by ground. they further explained that the patient would be 100% responsible for the transport bill out of pocket because the [facility] is not going to cover air transport. they wanted us to make pt aware that this bill would be in the triple digits and she would not be covered by [facility].. Doctor and Charge nurse are aware and the doctor has decided to take pt by ground. EMS is aware at this time.
--- NOTE | 2025-01-03 22:00 | PC.NURSE ---
pt bp reading 200/106, decreased levophed dose to 1 mcg/min, pt the dropped bp to 88/56, pt reports feeling lightheadedness, levophed drip increased to 5mcg/md per md at bs, pt bp remained with the 80s sbp. pt stablized with bp of 120s/80s on levophed of 2mcg/min, ems took pt once bp stablized and pt was at baseline.
--- NOTE | 2025-01-03 22:40 | ECG_ITS ---
APPROVED REPORT Exam: Resting ECG HR:52 bpm ECG Measurements Heart Rate 52 AXES AZ 146 P 83 QRSd 84 QRS 73 QT 458 T 62 QTc 437 Conclusion SINUS BRADYCARDIA NONSPECIFIC T-WAVE ABNORMALITY BORDERLINE ECG UNCONFIRMED REPORT Electronically signed by : EFRAIN KRUEGER, 01/05/2025 23:04:30
== END 2025-01-04 | disposition other institution (70) ==
PROVIDERS: Nurse Practitioner; Emergency Provider Student in an Organized Health Care Education/Training Program
DX: A41.89 Other specified sepsis (principal); R65.21 Severe sepsis with septic shock; R09.02 Hypoxemia; I95.9 Hypotension, unspecified; J44.1 Chronic obstructive pulmonary disease with (acute) exacerbation; I48.91 Unspecified atrial fibrillation; R74.02 Elevation of levels of lactic acid dehydrogenase [LDH]; N17.9 Acute kidney failure, unspecified; E86.0 Dehydration; E87.1 Hypo-osmolality and hyponatremia; E87.6 Hypokalemia; F17.210 Nicotine dependence, cigarettes, uncomplicated; W19.XXXA Unspecified fall, initial encounter
CPT/HCPCS: 51702; 70450; 71045; 71275; 72125; 74177; 80053; 80307; 80320; 81001; 82803; 83690; 83880; 84484; 85025; 85610; 85730; 86803; 87086; 87389; 93005; 96365; 96366; 96367; 96375; 99285; 99291; J0456; J2543; J2919; J3475; J3480; J7030; J7050; J7120